=== PATIENT | female | born 1970 | race Caucasian/White ===

== ENCOUNTER 2016-07-17 18:11 | Emergency (ER) | payer OTHER ==
[~2016-07-17] VITALS: Ht 160 cm; Wt 81.0 kg
[2016-07-17] MEDS ORDERED: ONDANSETRON 2 MG/ML (Z0FRAN) 2 ML VIAL IV ONE (18:25)
[2016-07-17] MEDS ORDERED: SODIUM CHLORIDE FLUSH 3 ML SYR IV ONE (18:25)
[2016-07-17] MEDS ORDERED: HYDROmorphone 1 MG/ML (DILAUDID) SYRINGE IV ONE (18:25)
[2016-07-17] MEDS ORDERED: KETOROLAC 30 MG/ML (TORADOL) 1 ML VIAL IV ONE (18:25)
[2016-07-17] MEDS ORDERED: SODIUM CHLORIDE FLUSH 10 ML SYR IV PRN (18:25)
[2016-07-17 18:37] LABS: BASOPHILS % (AUTO) 0 % (0-2); EOSINOPHILS # (AUTO) 0.1 10^3uL; EOSINOPHILS % (AUTO) 1 % (0-4); LYMPHOCYTES # (AUTO) 2.2 X10^3; MEAN CORPUSCULAR HEMOGLOBIN 28.8 PG (26.0-34.0); MEAN CORPUSCULAR VOLUME 82 FL (80-100); MEAN PLATELET VOLUME 9.6 FL (6.0-9.5); MONOCYTES # (AUTO) 0.8 X10^3; MONOCYTES % (AUTO) 7 % (3-11); NEUTROPHILS # (AUTO) 8.5 X10^3; NEUTROPHILS % (AUTO) 73 % (51-67); PLATELET COUNT 305 10^3uL (150-450); WHITE BLOOD COUNT 11.73 10^3uL (4.0-11.0)
[2016-07-17 18:50] LABS: ALBUMIN 4.5 g/dL (3.4-5.0); ANION GAP 15.6 MEQ/L (3-15); CALCULATED IONIZED CALCIUM 3.7 mg/dL (3.8-4.6)
[2016-07-17 18:59] LABS: BILIRUBIN,URINE Negative (Negative); CLARITY,URINE Clear; COLOR,URINE Yellow; GLUCOSE, URINE (UA) Negative (Negative); LEUKOCYTE ESTERASE ,URINE Negative (Negative); PH,URINE 5.5 (5.0 - 8.0)
[2016-07-17] MEDS ORDERED: ED- CYCLOBENZAPRINE 10 MG (FLEXERIL) 3 TABLETS/BTL PO ONE (19:55)
[2016-07-17 20:13] VITALS: BP 153/97
== END 2016-07-17 20:15 | disposition home or self-care (01) ==
LOC: EDUNIT# 18:11 → ED 18:15
DX: M54.89 Other dorsalgia (principal); R11.2 Nausea with vomiting, unspecified
CPT/HCPCS: 36415; 74176; 80053; 81003; 82150; 83690; 85025; 86140; 96361; 96374; 96375; 99283; J1885; J2405; J7030